=== PATIENT | female | born 1950 | race Caucasian/White ===

== ENCOUNTER → 2016-11-13 | Outpatient (CLI) | payer MEDICARE ==
--- NOTE | 2016-11-13 07:36 | US ---
EXAMINATION TYPE: US abdomen complete DATE OF EXAM: 11/13/2016 COMPARISON: NONE CLINICAL HISTORY: Right upper abdominal pain R10.11. Pt states RUQ pain EXAM MEASUREMENTS: Liver Length: 13.8 cm Gallbladder Wall: 0.2 cm CBD: 0.4 cm Spleen: 11.7 cm Right Kidney: 11.9 x 4.0 x 4.9 cm Left Kidney: 11.0 x 4.2 x 4.1 cm Pancreas: wnl, tail obscured by bowel gas Liver: wnl Gallbladder: Multiple gallstones, do not appear mobile Evidence for sonographic Salvador's sign: No CBD: wnl Spleen: wnl Right Kidney: No evidence of hydro, probable parapelvic cyst lower pole= 1.8 x 1.2 x 1.3 cm Left Kidney: No evidence of hydro, probable parapelvic cyst lower pole= 1.8 x 0.9 x 1.8 cm Upper IVC: wnl Abd Aorta: wnl The liver is homogenous. The intrahepatic portion of the IVC and proximal abdominal aorta are within normal limits. There are shadowing mobile gallstones. Common bile duct is unremarkable. The visua lized portions of the pancreas are homogenous. The spleen is unremarkable. Kidneys are symmetric an d free of hydronephrosis. No suspicious solid or cystic renal lesions are seen. Central simple appea ring cysts are marked by technologist in both kidneys. IMPRESSION: Gallstones without secondary ultrasound evidence for acute cholecystitis.
== END ==
LOC: RADUSWWP 06:52
PROVIDERS: ATTEND Internal Medicine
DX: K80.20 Calculus of gallbladder without cholecystitis without obstruction (principal)
CPT/HCPCS: 76700

== ENCOUNTER → 2017-03-10 | Outpatient (CLI) | payer MEDICARE ==
--- NOTE | 2017-03-10 15:36 | XR ---
EXAMINATION TYPE: XR cervical spine limited DATE OF EXAM: 03/10/2017 COMPARISON: NONE HISTORY: 66-year-old female with left neck pain and cervicalgia TECHNIQUE: 3 views FINDINGS: No predental space widening or prevertebral soft tissue swelling. Mild disc space narrowing and endpl ate spondylosis and C5-C6 and C6-C7. Corresponding facet and uncovertebral joint arthropathy. The cer vicothoracic junction is obscured by the patient's shoulders and not assessed. Otherwise, alignment i s maintained. Normal odontoid view. IMPRESSION: 1. Moderate spondylotic change at C5-C6 and C6/C7. 2. Note that the cervicothoracic junction is obscured by the patient's shoulders and not assessed. Ot herwise, cervical alignment is maintained.
== END ==
LOC: RADXRYALE 13:30
PROVIDERS: ATTEND Internal Medicine
DX: M47.812 Spondylosis without myelopathy or radiculopathy, cervical region (principal)
CPT/HCPCS: 72040

== ENCOUNTER → 2019-05-26 | Outpatient (CLI) | payer MEDICARE ==
--- NOTE | 2019-05-26 13:23 | XR ---
Right shoulder HISTORY: Pain for 1 month 3 views the right shoulder Bone mineralization is maintained. Joint spaces and alignment are maintained. Right lung apex as visu alized is normal. No fracture or dislocation. There is overlying artifact. IMPRESSION: No acute abnormality. Shoulder MRI may be of benefit.
== END | disposition home or self-care (01) ==
LOC: RADXRYALE 12:55
PROVIDERS: ATTEND Internal Medicine
DX: M25.511 Pain in right shoulder (principal)

== ENCOUNTER 2021-03-31 14:31 | Emergency (ER) | payer MEDICARE, OTHER ==
[2021-03-31] MEDS ORDERED: ONDANSETRON 4 MG/2 ML VIAL IVP STA (19:29)
[2021-03-31] MEDS ORDERED: SODIUM CHLORIDE 0.9% 1,000 ML IV STA (19:29)
[2021-03-31 20:26] VITALS: RESP 20
[2021-03-31] MEDS ORDERED: CASIRIVIMAB (REGN10933) (EUA) 600 MG, IMDEVIMAB (REGN10987) (EUA) 600 MG in SODIUM CHLO... IVPB ONE (20:30)
[2021-03-31] MEDS ORDERED: SODIUM CHLORIDE 0.9% 50 ML IVPB ONE (20:30)
--- NOTE | 2021-03-31 22:27 | ED ---
General Adult HPI - General Chief complaint: Upper Respiratory Infection Stated complaint: wants antiboidies Time Seen by Provider: 03/31/21 18:39 Source: patient, family Mode of arrival: ambulatory Limitations: no limitations - History of Present Illness Initial comments: 70-year-old female presents to the emergency department for evaluation. Patient states she has been feeling poorly since Thursday. States a number of her family members have been sick with Covid. Patient describes her symptoms as fatigue, headache, nausea, and poor appetite. Patient states she did not take anything to treat her symptoms prior to arrival. Denies fever, chills, chest pain, difficulty breathing, abdominal pain, diarrhea, constipation, dysuria, or hematuria. She has not been vaccinated, but would like to receive the monoclonal antibody infusion. - Related Data Allergies Allergy/AdvReac Type Severity Reaction Status Date / Time No Known Allergies Allergy Verified 03/31/21 15:52 Review of Systems ROS Statement: Those systems with pertinent positive or pertinent negative responses have been documented in the HPI. ROS Other: All systems not noted in ROS Statement are negative. Past Medical History Past Medical History: Eye Disorder, Hypertension History of Any Multi-Drug Resistant Organisms: None Reported Past Surgical History: Cholecystectomy Past Psychological History: No Psychological Hx Reported Smoking Status: Never smoker Past Alcohol Use History: None Reported Past Drug Use History: None Reported General Exam Limitations: no limitations (This is a well-developed, well-nourished female in no acute distress. Initial temperature 90.9, pulse 88, respirations 18, blood pressure 130/82, pulse ox 98% on room air.) General appearance: alert, in no apparent distress ENT exam: Present: normal exam, normal oropharynx, mucous membranes moist Neck exam: Present: normal inspection. Absent: tenderness, meningismus, lymphadenopathy Respiratory exam: Present: normal lung sounds bilaterally. Absent: respiratory distress, wheezes, rales, rhonchi, stridor Cardiovascular Exam: Present: regular rate, normal rhythm, normal heart sounds. Absent: systolic murmur, diastolic murmur, rubs, gallop, clicks GI/Abdominal exam: Present: soft, normal bowel sounds. Absent: distended, tenderness, guarding, rebound, rigid Neurological exam: Present: alert, oriented X3, CN II-XII intact Skin exam: Present: warm, dry, intact, normal color. Absent: rash Course Vital Signs 03/31/21 03/31/21 03/31/21 15:48 20:00 20:25 Temperature 99.0 F 98.9 F Pulse Rate 88 78 Respiratory 18 20 20 Rate Blood Pressure 130/82 138/63 O2 Sat by Pulse 98 96 Oximetry 03/31/21 21:43 Temperature 98.4 F Pulse Rate 76 Respiratory 20 Rate Blood Pressure 136/77 O2 Sat by Pulse 98 Oximetry Medical Decision Making - Medical Decision Making 70-year-old female presents to the emergency department requesting Covid testing and antibody infusion. Upon exam, patient is well-appearing though reports feeling ill. She has no shortness of breath, difficulty breathing, or chest pain. She is afebrile, not tachycardic, nor tachypneic. Pulse ox on room air is 95-100%. Patient did complain of nausea and poor appetite. Patient was given a liter of IV fluids and Zofran. Covid test was positive. Risks and benefits of 1 clonal therapy were reviewed with patient. Questions answered and she verbalizes understanding and requests to go ahead with infusion. Patient tolerated infusion without any adverse side effects. She will be discharged home to follow up with her primary care provider for a recheck as needed. Return parameters were discussed in detail. Patient verbalizes understanding and agrees with this plan. This patient's care was discussed with my attending Dr. Calderon. - Lab Data Lab Results 03/31/21 Range/Units 15:56 Coronavirus (PCR) Detected A (Not Detectd) Disposition Clinical Impression: COVID-19 Disposition: HOME SELF-CARE Condition: Stable Instructions (If sedation given, give patient instructions): Coronavirus Disease 2019 (COVID-19) Additional Instructions: Rest. Increase fluids. May take Tylenol or Motrin as needed for fever or discomfort. Quarantine for 10 days from symptom onset. Follow-up with your primary care provider for a follow up visit via telephone or video visit for a recheck. Return to the emergency department with any new, worsening, or concerning symptoms. Is patient prescribed a controlled substance at d/c from ED?: No Referrals: Ching Lake MD [Primary Care Provider] - 1-2 days Time of Disposition: 22:35
[2021-03-31 23:33] VITALS: BP 136/77; PULSE 76; TEMP 98.4
== END 2021-03-31 21:43 | disposition home or self-care (01) ==
LOC: EC 14:31
DX: U07.1 COVID-19 (principal); I10 Essential (primary) hypertension
CPT/HCPCS: 87635; 96374; 96361; 99284; J2405; Q0243

== ENCOUNTER → 2021-12-17 | Outpatient (CLI) | payer MEDICARE, OTHER ==
--- NOTE | 2021-12-17 08:17 | CT ---
EXAMINATION TYPE: CT sinus wo con CT DLP: 609.40 mGycm, Automated exposure control for dose reduction was used. DATE OF EXAM: 12/17/2021 7:13 AM COMPARISON: CT head same day. CLINICAL INDICATION:Female, 71 years old with history of R51.9 HEADACHE, UNSPECIFIED; , Headache, sin us trouble CONTRAST: None. TECHNIQUE: Multiple thin axial images were obtained through the paranasal sinuses without the use of IV contrast. Additional coronal and sagittal reformatted images were submitted for evaluation. FINDINGS: Frontal sinuses: Aplastic bilaterally. Frontal Recess: Absent Modified Marianna-Kiko Score: Right 0 = 0% Opacified, Left 0 = 0% Opacified Maxillary Sinuses: Normally developed with mucous retention cyst in the left and mild mucosal thicken ing in the right. Modified Yang-Waycross Score: Right 1 = 1-25% Opacified, Left 2 = 26-50% Opacified Maxillary Infundibula([facility]): Clear, No Bhumika cells identified. Modified Marianna-Kiko Score: Right 0 = Completely patent, Left 0 = Completely patent Ethmoid sinuses: Normally developed and aerated. Ethmoidal notch: Protected and abutting the lateral lamina. Modified Marianna-Waycross Score: Anterior Right 1 = 1-25% Opacified, Left 1 = 1-25% Opacified Posterior Right 1 = 1-25% Opacified, Left 1 = 1-25% Opacified Sphenoid sinuses: Normally developed and aerated. There is sellar sphenoid sinus pneumatization witho ut evidence of dehiscence. No dehiscence of carotid canal. No evidence of optic nerve dehiscence wit hin the sphenoid sinus. No evidence of Onodi cells. Sphenoethmoidal recesses: Clear. Modified Marianna-Waycross Score: Right 0 = 0% Opacified, Left 0 = 0% Opacified. Nasal septum: Within normal limits.. Nasal Turbinates: Within normal limits. A zeke bullosa defect is seen involving the right middle tu rbinate. Mastoid air cells & middle ears: The air cells are clear. The middle ears are grossly unremarkable. Modified Soft tissues & Brain: Partially seen without gross abnormality. Globes are intact. Other: Cribriform plate demonstrates symmetric Keros classification type 2 cribriform plate. No evidence of bony dehiscence of skull base. Lamina papyracea is intact without evidence of remote orbital fracture or orbital prolapse into the e thmoid sinus. IMPRESSION: 1. No significant mucosal sinus disease. 2. The ostiomeatal units and sphenoethmoidal recesses are clear. 3. Opacification burden of on the Modified Yang-Waycross scoring system.
--- NOTE | 2021-12-17 08:19 | CT ---
EXAMINATION TYPE: CT brain wo con CT DLP: 1036.0 mGycm, Automated exposure control for dose reduction was used. DATE OF EXAM: 12/17/2021 7:13 AM COMPARISON: CT sinus and day. CLINICAL INDICATION:Female, 71 years old with history of R51.9 HEADACHE, UNSPECIFIED, Headache, sinus trouble TECHNIQUE: Brain: Axial CT images of the brain were obtained with coronal and sagittal reformats created and rev iewed. Contrast used: None. Oral contrast used: None. FINDINGS: Brain: Extra-axial spaces: No abnormal extra-axial fluid collections. Ventricular system: Dilatation in proportion to cerebral atrophy. Cerebral parenchyma: Cerebral atrophy. No acute intraparenchymal hemorrhage or mass effect. The ray -white junction is well differentiated. Scattered hypoattenuating areas are seen within the white mat ter. Cerebellum: Unremarkable. Mass effect: No evidence of midline shift. Intracranial vasculature: Atherosclerotic calcifications of the intracranial vessels. Soft tissues: Normal. Calvarium/osseous structures: No depressed skull fracture. Paranasal sinuses and mastoid air cells: Mild scattered paranasal sinus disease. Visualized orbits: Left aphakia IMPRESSION: 1. No acute intracranial process. 2. Nonspecific white matter changes, likely secondary to chronic small vessel ischemic disease.
== END | disposition home or self-care (01) ==
LOC: RADCTMAIN 06:49
PROVIDERS: ATTEND Internal Medicine
DX: R51.9 Headache, unspecified (principal)
CPT/HCPCS: 70450; 70486